=== PATIENT | female | born 1965 | race Caucasian/White ===

== ENCOUNTER → 2018-12-02 | Outpatient (CLI) | payer OTHER ==
[~2018-12-02] MED LIST: CIPRO 500MG TA500 MG PO; MEDROL 4MG DOSPA4 MG PO; NORCO 325 MG-51 TAB PO
== END ==
LOC: MC.RAD 14:15
DX: Z12.31 Encounter for screening mammogram for malignant neoplasm of breast (principal)

== ENCOUNTER 2019-06-30 23:00 | Emergency (ER) | payer MEDICARE ==
[~2019-06-30] VITALS: Ht 165.1 cm; Wt 45.5 kg
[2019-06-30 23:30] VITALS: TEMP 98.7
[2019-07-01 00:33] VITALS: BP 167/104; PULSE 80
[2019-07-01 03:18] LABS: ALANINE AMINOTRANSFERASE 24 U/L (9-52); ALBUMIN 4.3 gm/dL (3.5-5.0); ALKALINE PHOSPHATASE 87 U/L (50-136); ANION GAP 10 mmol/L (7-16); AST,SGOT 39 U/L (15-37); BILIRUBIN,TOTAL 0.2 mg/dL (0.0-1.0); BLOOD UREA NITROGEN 29 mg/dL (7-17); CALCIUM 9.3 mg/dL (8.4-10.2); CARBON DIOXIDE 31 mmol/L (22-30); CHLORIDE 101 mmol/L (98-107); CREATININE, serum 0.59 (0.52-1.25); GLUCOSE 91 mg/dL (74-106); POTASSIUM 3.8 mmol/L (3.4-5.0); SODIUM 142 mmol/L (137-145); TOTAL PROTEIN 7.6 gm/dL (6.4-8.2); TROPONIN-I < 0.012 ng/mL (0.000-0.035)
[2019-07-01 03:19] LABS: BASO # 0.1 (0.0-0.2); BASO % 1.4 % (0.0-2.0); EOS # 0.4 (0.0-0.7); EOS % 5.4 % (0-4.0); GRAN # 3.3 (1.4-6.5); GRAN % 49.7 % (42.2-75.2); HEMATOCRIT 40.2 % (37.0-47.0); HEMOGLOBIN 13.3 g/dl (12.5-16.0); LYMPH # 2.1 (1.2-3.4); LYMPH % 32.7 % (20.0-51.0); MEAN CELL VOLUME 97 fl (80.0-100.0); MEAN CORPUSCULAR HEMOGLOBIN 32 pg (27.0-31.0); MEAN CORPUSCULAR HGB CONC 33 g/dl (33.0-37.0); MEAN PLATELET VOLUME 9.8 fl (7.4-10.4); MONO # 0.7 (0.1-0.6); MONO % 10.6 % (1.7-9.3); PARTIAL THROMBOPLASTIN TIME 33.6 SECONDS (26.0-37.0); PLATELET COUNT 224 K/mm3 (130-400); PROTHROMBIN TIME 11.1 SECONDS (9.7-12.8); RED BLOOD COUNT 4.14 M/mm3 (4.10-5.30); REDCELL DISTRIBUTION WIDTH-CV 12.9 % (11.5-14.5)
[2019-07-01] MEDS ORDERED: NORVASC2.5 MG PO (13:20)
== END 2019-07-01 00:33 | disposition short-term general hospital (02) ==
LOC: COL.ER 23:00
PROVIDERS: Emergency Medicine
DX: G45.9 Transient cerebral ischemic attack, unspecified (principal); I10 Essential (primary) hypertension
CPT/HCPCS: Q9967

== ENCOUNTER → 2020-08-04 | Outpatient (CLI) | payer MEDICARE ==
[~2020-08-04] MED LIST changes: +NORVASC2.5 MG PO
== END ==
LOC: MC.RAD 14:45
DX: Z12.31 Encounter for screening mammogram for malignant neoplasm of breast (principal)

== ENCOUNTER 2020-12-22 04:22 | Observation (INO) | payer MEDICARE ==
[2020-12-22 08:44] VITALS: BP 135/86; PULSE 85; TEMP 98.7
[2020-12-22 11:31] VITALS: BP 124/69; PULSE 83; TEMP 98.6
[2020-12-22] MEDS ORDERED: FLAGYL500 MG PO ×2 (15:00)
[2020-12-22] MEDS ORDERED: CIPRO 500MG TA500 MG PO ×2 (15:00)
[2020-12-22] MEDS ORDERED: BENTYL 10MG10 MG/CAP PO ×2 (15:01)
[2020-12-22] MEDS ORDERED: PREDNISONE 5MG5 MG PO (15:13)
[2020-12-22] MEDS ORDERED: LIPITOR 40MG TA40 MG PO (15:31)
[2020-12-22] MEDS ORDERED: PRINIVIL40 MG PO (15:31)
--- NOTE | 2020-12-22 16:17 | NUR ---
PT WILL BE DISCHARGING HOME. FOLLOW UP WITH GI OUTPATIENT. THE PATIENT IS READY TO GO. NO FURTHER CONCERNS.
[2020-12-22] MEDS ORDERED: NORCO 325 MG-51 TAB PO ×2 (16:43)
--- NOTE | 2020-12-22 18:19 | NUR ---
PT DISCHARGED HOME WILL HAVE OUTPATIENT PROCEDURE WITH DR. CUELLAR. NO FURTHER CONCERNS.
[2020-12-24] MEDS ORDERED: NORCO 325 MG-51 TAB PO ×2 (10:19)
== END 2020-12-22 18:18 | disposition home or self-care (01) ==
LOC: MEDICAL 04:22 → EDSTATUS 15:36 → MEDICAL 18:18
PROVIDERS: ADMIT Family Medicine
DX: K51.90 Ulcerative colitis, unspecified, without complications (principal); I10 Essential (primary) hypertension; H91.3 Deaf nonspeaking, not elsewhere classified; E78.5 Hyperlipidemia, unspecified; Z79.899 Other long term (current) drug therapy; M19.90 Unspecified osteoarthritis, unspecified site; Z86.73 Personal history of transient ischemic attack (TIA), and cerebral infarction without residual deficits; Z80.3 Family history of malignant neoplasm of breast; Z80.8 Family history of malignant neoplasm of other organs or systems
CPT/HCPCS: G0378; J0744; J1170; J2920

== ENCOUNTER → 2022-08-02 | Outpatient (CLI) | payer MEDICARE ==
[~2022-08-02] MED LIST changes: +BENTYL 10MG10 MG/CAP PO; +FLAGYL500 MG PO; +LIPITOR 40MG TA40 MG PO; +PREDNISONE 5MG5 MG PO; +PRINIVIL40 MG PO
== END ==
LOC: MC.RAD 14:57
DX: Z12.31 Encounter for screening mammogram for malignant neoplasm of breast (principal)